=== PATIENT | male | born 1950 | race Caucasian/White ===

== ENCOUNTER 2021-07-11 09:18 | Outpatient (CLI) | payer MEDICARE, BC | END 2021-07-11 09:19 | disposition home or self-care (01) | LOC: NM 09:18 | PROVIDERS: ATTEND Psychiatry & Neurology Neurology | DX: G47.52 REM sleep behavior disorder (principal); R41.0 Disorientation, unspecified; F09 Unspecified mental disorder due to known physiological condition; R26.9 Unspecified abnormalities of gait and mobility; G20 Parkinson's disease | CPT/HCPCS: 78803; A9584 ==